=== PATIENT | male | born 1995 | race Caucasian/White ===

== ENCOUNTER 2018-11-17 12:59 | Emergency (ER) | payer BC, OTHER ==
--- NOTE | 2018-11-17 13:07 | UC ---
GI Bleed HPI - HPI Summary HPI Summary: 23 yo male presents with bright red blood per rectum x1 this morning. He tells me that he has never had this in the past. Yesterday had a "GI bug" and had several episodes of vomiting and diarrhea/loose stools. Today he woke up and went to have a BM and noticed bright red blood on the toilet tissue and in the bowl. He has mild pain around his anus. Seeing the blood concerned him - prompting his visit to . He has no more vomiting or diarrhea and is eating/ drinking well. Denies fever, abdominal pain, dysuria. He is also requesting a test for lyme disease today as he states he has been bitten by many ticks in the past. He has no symptoms of lyme disease today. - History Of Current Complaint Stated Complaint: RECTAL BLEEDING Time Seen by Provider: 11/17/18 13:06 Hx Obtained From: Patient Onset/Duration: Sudden Onset Severity Currently: None - Allergies/Home medications Allergies/Adverse Reactions: Allergies Allergy/AdvReac Type Severity Reaction Status Date / Time bee venom protein (honey bee) Allergy Swelling Verified 11/17/18 13:18 clarithromycin [From Biaxin] Allergy Hives Verified 11/17/18 13:18 PMH/Surg Hx/FS Hx/Imm Hx - Additional Past Medical History Additional PMH: None - Surgical History Surgical History: None - Family History Known Family History: Positive: None - Social History Lives: With Family Alcohol Use: Occasionally Substance Use Type: None Smoking Status (MU): Never Smoked Tobacco Review of Systems All Other Systems Reviewed And Are Negative: Yes Constitutional: Positive: Negative Skin: Positive: Negative Respiratory: Positive: Negative Cardiovascular: Positive: Negative Gastrointestinal: Positive: Other - Rectal bleeding Genitourinary: Positive: Negative Neurovascular: Positive: Negative Neurological: Positive: Negative Psychological: Positive: Negative Physical Exam - Summary Physical Exam Summary: GENERAL: NAD. WDWN. No pain distress. SKIN: No rashes, sores, lesions, or open wounds. NECK: Supple. Nontender. No lymphadenopathy. CHEST: CTAB. No r/r/w. No accessory muscle use. Breathing comfortably and in no distress. CV: RRR. Without m/r/g. Pulses intact. Cap refill <2seconds ABDOMEN: Soft. NTTP. No distention or guarding. No organomegaly. Bowel sounds present. RECTAL: No stool in vault. Bright red blood surrounding anus. 3-4mm anal fissure at posterior 1 o'clock position TTP. NEURO: Alert. PSYCH: Age appropriate behavior. Triage Information Reviewed: Yes Vital Signs: Vital Signs: Temp Pulse Resp BP Pulse Ox 98.2 F 74 18 144/84 99 11/17/18 13:13 11/17/18 13:13 11/17/18 13:13 11/17/18 13:13 11/17/18 13:13 Vital Signs Reviewed: Yes Bleed Course/Dx - Course Course Of Treatment: Anal fissure. Will rx for preparation H and advised to try sitz bath and eat a healthy fiber diet with drinking plenty of water. - Differential Dx/Diagnosis Provider Diagnosis: Anal fissure Discharge - Sign-Out/Discharge Documenting (check all that apply): Patient Departure All imaging exams completed and their final reports reviewed: No Studies - Discharge Plan Condition: Stable Disposition: HOME Prescriptions: Hemorrhoidal OINT* [Preparation H*] 1 applic NM Q12H #1 tube Hydrocortisone 1% CREAM* [Hytone Cream 1%*] 1 applic TOPICAL BID PRN #1 tube PRN Reason: Dry Skin Patient Education Materials: Rectal Bleeding (ED), Anal Fissure (ED) Referrals: Austin Walls MD [Primary Care Provider] - Additional Instructions: If you develop a fever, shortness of breath, chest pain, new or worsening symptoms - please call your PCP or go to the ED immediately. 1) Apply the hemorrhoid cream around the area twice a day for 5 days. 2) Eat a healthy fiber diet and drink lots of water - Billing Disposition and Condition Condition: STABLE Disposition: Home
--- NOTE | 2018-11-19 15:43 | UC ---
- Progress Note Progress Note: Lyme IgG, IgM antibody testing: Equivocal It is sent to reference laboratory for conservative testing IgM and IgG specific band testing not available at this time. Patient did not have any symptoms as per note and just wanted to get it tested given the history of multiple tick bites. Please notify patient of the current results and that we will call the patient once specific band testing is available which can take up to 5-6 days. Course/Dx - Diagnoses Provider Diagnoses: Anal fissure Discharge - Sign-Out/Discharge Documenting (check all that apply): Post-Discharge Follow Up All imaging exams completed and their final reports reviewed: No Studies - Discharge Plan Condition: Stable Disposition: HOME Prescriptions: Hemorrhoidal OINT* [Preparation H*] 1 applic RI Q12H #1 tube Hydrocortisone 1% CREAM* [Hytone Cream 1%*] 1 applic TOPICAL BID PRN #1 tube PRN Reason: Dry Skin Patient Education Materials: Rectal Bleeding (ED), Anal Fissure (ED) Forms: *Work Release Referrals: Austin Walls MD [Primary Care Provider] - Additional Instructions: If you develop a fever, shortness of breath, chest pain, new or worsening symptoms - please call your PCP or go to the ED immediately. 1) Apply the hemorrhoid cream around the area twice a day for 5 days. 2) Eat a healthy fiber diet and drink lots of water - Billing Disposition and Condition Condition: STABLE Disposition: Home
== END 2018-11-17 13:57 | disposition home or self-care (01) ==
LOC: UCEAST 12:59
DX: K60.2 Anal fissure, unspecified (principal); K62.5 Hemorrhage of anus and rectum; Z88.1 Allergy status to other antibiotic agents; Z91.030 Bee allergy status
CPT/HCPCS: 36415; 86617; 86618; 99202; G0463